=== PATIENT | male | born 1990 | race Caucasian/White ===

== ENCOUNTER 2020-12-22 11:17 | Inpatient (IN) | payer OTHER ==
[2020-12-22 12:52] VITALS: BMI 22.0
[2020-12-22] MEDS ORDERED: MAG HYDROX/AL HYDROX/SIMETH 30 ML UNIT-DOSE CUP PO PRN (13:17)
[2020-12-22] MEDS ORDERED: IBUPROFEN 400 MG TABLET (FP) PO PRN (13:17)
[2020-12-22] MEDS ORDERED: MENTHOL/PHENOL 1 EACH UD MM PRN (13:17)
[2020-12-22] MEDS ORDERED: MAGNESIUM HYDROX 2400MG/30ML ORAL SUSPENSION 30 ML CUP PO PRN (13:17)
[2020-12-22] MEDS ORDERED: ACETAMINOPHEN 325 MG TABLET (FP) PO PRN ×2 (13:17)
[2020-12-22] MEDS ORDERED: NALOXONE HCL 0.4 MG/ML VIAL IM PRN (13:17)
[2020-12-22] MEDS ORDERED: NICOTINE POLACRILEX 2 MG GUM BUC PRN (13:17)
[2020-12-22] MEDS ORDERED: cloNIDine HCL 0.1 MG TABLET PO PRN (13:17)
[2020-12-22] MEDS ORDERED: MAGNESIUM CITRATE 300 ML BOTTLE PO PRN (13:17)
[2020-12-22] MEDS ORDERED: METHOCARBAMOL 500 MG TABLET PO PRN (13:17)
[2020-12-22] MEDS ORDERED: METHADONE HCL 10 MG TABLET (FOR DETOX USE ONLY) PO ONE (13:17)
[2020-12-22] MEDS ORDERED: BISMUTH SUBSALICYLATE 524 MG/30 ML UD PO PRN (13:17)
[2020-12-22] MEDS ORDERED: NICOTINE 7 MG/24 HOURS TOPICAL PATCH TD SCH (13:30)
[2020-12-22] MEDS: NICOTINE 21 MG/24 HOURS TOPICAL PATCH TD SCH (15:30)
[2020-12-22] MEDS: NICOTINE POLACRILEX 4 MG GUM BUC PRN ×2 (15:30→19:16)
[2020-12-22] MEDS: diazePAM 5 MG TABLET PO PRN ×2 (15:32→19:32)
[2020-12-22] MEDS: diazePAM 5 MG TABLET PO SCH ×2 (17:24→22:27)
[2020-12-22] MEDS: MELATONIN 5 MG TABLETS PO SCH (22:28)
[2020-12-22] MEDS: THIAMINE HCL 100 MG TABLET (FP) PO SCH (22:28)
[2020-12-22] MEDS ORDERED: HYDROCORTISONE 1% TOPICAL OINT 30 GM TUBE TP PRN (22:41)
[2020-12-22] MEDS ORDERED: COLLOIDAL OATMEAL 1 BAR EACH TP PRN (22:42)
[2020-12-23] MEDS: diazePAM 5 MG TABLET PO SCH ×4 (05:17→22:48)
[2020-12-23] MEDS ORDERED: METHADONE HCL 5 MG TABLET (FOR DETOX USE ONLY) ONE (09:38)
[2020-12-23] MEDS ORDERED: METHADONE HCL 10 MG TABLET (FOR DETOX USE ONLY) ONE (09:38)
[2020-12-23] MEDS ORDERED: METHADONE (DETOX) 20 MG, METHADONE (DETOX) 5 MG PO ONE (10:00)
[2020-12-23] MEDS: NICOTINE 21 MG/24 HOURS TOPICAL PATCH TD SCH (10:41)
[2020-12-23] MEDS: PRENATAL VITAMINS W/ FOLIC ACID TABLET (FP) PO SCH (10:42)
[2020-12-23 12:05] LABS: HEMATOCRIT 38.8 % (35.4-49); HEMOGLOBIN 13.4 GM/dL (11.7-16.9); MCH 30.8 pg (25.7-33.7); MCHC 34.5 g/dl (32.0-35.9); MEAN CELL VOLUME 89.4 fl (80-96); MEAN PLT VOLUME 7.1 fl (7.5-11.1); PLATELET COUNT 269 K/MM3 (134-434); RBC 4.34 M/mm3 (4.00-5.60); RDW 13.1 % (11.9-15.9)
[2020-12-23 12:06] LABS: POTASSIUM 4.2 mmol/L (3.5-5.1)
[2020-12-23 12:07] LABS: CALCIUM 8.5 mg/dL (8.5-10.1)
[2020-12-23 12:08] LABS: BLOOD UREA NITROGEN 15.8 mg/dL (7-18)
[2020-12-23 12:11] LABS: CREATININE 0.8 mg/dL (0.55-1.3)
[2020-12-23 12:12] LABS: BILIRUBIN,TOTAL 0.3 mg/dL (0.2-1); TOT PROT 6.3 g/dl (6.4-8.2)
[2020-12-23 13:04] LABS: HIV INTERPRETATION NEGATIVE (NEGATIVE)
[2020-12-23] MEDS: diazePAM 5 MG TABLET PO PRN (14:42)
[2020-12-23] MEDS: MELATONIN 5 MG TABLETS PO SCH (22:49)
[2020-12-23] MEDS: THIAMINE HCL 100 MG TABLET (FP) PO SCH (22:49)
[2020-12-24] MEDS: diazePAM 5 MG TABLET PO SCH ×2 (06:29→13:16)
[2020-12-24 09:45] VITALS: TEMP 97.5
[2020-12-24] MEDS ORDERED: METHADONE HCL 10 MG TABLET (FOR DETOX USE ONLY) PO ONE (10:00)
[2020-12-24] MEDS: diazePAM 5 MG TABLET PO PRN (10:30)
[2020-12-24] MEDS: PRENATAL VITAMINS W/ FOLIC ACID TABLET (FP) PO SCH (10:30)
[2020-12-24] MEDS: NICOTINE 21 MG/24 HOURS TOPICAL PATCH TD SCH (10:32)
[2020-12-24] MEDS: NICOTINE POLACRILEX 4 MG GUM BUC PRN ×2 (10:34→13:18)
[2020-12-24 13:12] VITALS: BP 120/76; PULSE 113
[2020-12-25] MEDS ORDERED: diazePAM 5 MG TABLET PO SCH (06:00)
[2020-12-25] MEDS ORDERED: METHADONE (DETOX) 10 MG, METHADONE (DETOX) 5 MG PO ONE (10:00)
[2020-12-26] MEDS ORDERED: diazePAM 5 MG TABLET PO ONE (06:00)
[2020-12-26] MEDS ORDERED: METHADONE HCL 10 MG TABLET (FOR DETOX USE ONLY) PO ONE (10:00)
[2020-12-27] MEDS ORDERED: METHADONE HCL 5 MG TABLET (FOR DETOX USE ONLY) PO ONE (06:00)
== END 2020-12-24 14:12 | disposition left against medical advice (07) | DRG 770 ==
LOC: YASAS 11:17 → Y3N 13:11
PROVIDERS: ADMIT Allergy & Immunology; ATTEND Allergy & Immunology
PROC: HZ2ZZZZ Detoxification Services for Substance Abuse Treatment (ICD-10-PCS; principal; 2020-12-22)
DX: F11.23 Opioid dependence with withdrawal (principal); F14.20 Cocaine dependence, uncomplicated; F13.10 Sedative, hypnotic or anxiolytic abuse, uncomplicated; F17.210 Nicotine dependence, cigarettes, uncomplicated; F41.9 Anxiety disorder, unspecified; E88.09 Other disorders of plasma-protein metabolism, not elsewhere classified; K21.9 Gastro-esophageal reflux disease without esophagitis; M54.41 Lumbago with sciatica, right side; Z88.0 Allergy status to penicillin
CPT/HCPCS: 36415; 80053; 85027; 86780; 87389; 93005; 93010; C9803; U0003